=== PATIENT | male | born 1980 | race Caucasian/White ===

== ENCOUNTER 2018-10-27 04:08 | Emergency (ER) | payer BC ==
[2018-10-27] MEDS ORDERED: ENT KIT ONE (04:18)
--- NOTE | 2018-10-27 04:24 | ER Report ---
History and Physical Time Seen By MD: 04:10 HPI/MISSY CHIEF COMPLAINT: Nosebleed HISTORY OF PRESENT ILLNESS: 37-year-old male without a history of hypertension, blood thinners or NSAIDs to excess. Complains of bleeding from his left nose. Patient states he fell a week ago in his house, hitting his chest very hard and his nose. A nosebleed that lasted 2 minutes. Then again yesterday. It bled for a little while in the morning around 10:30 AM he was able to stop it after applying some pressure to his nose. Denies nose bleeding started since 10:30 last night. He's been unable to stop it. Allergies: Coded Allergies: No Known Drug Allergies (Unverified , 10/27/18) Home Meds Reported Medications Calcium Carbonate (CALCIUM) 500 Mg Tablet, 500 MG PO 10/27/18 Reviewed Nurses Notes: Yes Old Medical Records Reviewed: Yes Constitutional Vital Sign - Last 24 Hours 10/27/18 10/27/18 10/27/18 10/27/18 04:12 04:14 04:17 04:30 Temp 98.6 Pulse 104 ??? 98 Resp 18 B/P (MAP) 160/116 (131) 160/116 Pulse Ox 96 91 90 O2 Delivery Room Air Room Air 10/27/18 10/27/18 10/27/18 04:30 04:47 05:00 Pulse 98 B/P (MAP) 144/115 (125) 142/112 (122) Pulse Ox 92 Physical Exam General Appearance: The patient is alert, has no immediate need for airway protection and no current signs of toxicity. Vital signs stable, blood pressure elevated HEENT: Pupils equal and round no injection. TMs normal, holly bleeding from left nares Respiratory: Chest is non tender, lungs are clear to auscultation. Cardiac: regular rate and rhythm Gastrointestinal: Abdomen is soft and non tender, no masses, bowel sounds normal. Musculoskeletal: Neck: Neck is supple and non tender. Extremities have full range of motion and are non tender. Skin: No rashes or lesions. DIFFERENTIAL DIAGNOSIS: After history and physical exam differential diagnosis was considered for nose bleeding, fractured nose, epistaxis, hypertension Medical Decision Making ED Course/Re-evaluation ED Course Patient was minute to an examination room. H&P was done. The differential diagnoses was considered. Patient initially with bleeding out of his left nares. He compressed that side and the blood backed up and spread around to the right side. Patient was asked to blow numerous clots from his nose with large handfuls of tissues. A cotton ball saturated in Sixto-Synephrine and lidocaine 1% with epinephrine was placed in the left nares. After observation of 10 minutes. It was removed. There was no visualized clot or fresh area of bleeding to cauterize with silver nitrate. Patient was observed for 20 minutes without active bleeding. He is advised a cold. His nasal passages with petroleum jelly or anabolic ointment and a Q-tip. Patient was educated on how to stop is no nosebleed at home. She was provided a bottle of Sixto-Synephrine was used. Decision to Disposition Date: Oct 27, 2018 Decision to Disposition Time: 04:22 Depart Departure Latest Vital Signs Vital Signs Date Time Temp Pulse Resp B/P (MAP) Pulse Ox O2 Delivery O2 Flow Rate FiO2 10/27/18 05:00 142/112 (122) 10/27/18 04:47 98 92 10/27/18 04:30 Room Air 10/27/18 04:14 98.6 18 Impression: Primary Impression: Epistaxis Additional Impression: Elevated blood pressure reading Condition: Improved Disposition: HOME OR SELF-CARE Patient Instructions: Nosebleed (ED) Problem Qualifiers PRASHANTH KEYS DO Oct 27, 2018 04:24
[2018-10-27] MEDS ORDERED: CALC500T6 PO (04:26)
[2018-10-27 05:00] VITALS: BP 142/112
[2018-10-27] MEDS ORDERED: LIDO/EPI 1% MDV 1:100,000 20ML INFIL ONE (05:20)
[2018-10-27] MEDS ORDERED: PHENYLEPHRINE 0.5% 15 ML BTL ONE (05:20)
== END 2018-10-27 05:12 | disposition home or self-care (01) ==
LOC: ER 04:13
DX: R04.0 Epistaxis (principal); R03.0 Elevated blood-pressure reading, without diagnosis of hypertension
CPT/HCPCS: 99282